=== PATIENT | male | born 1980 | race American Indian/Alaskan Native ===

== ENCOUNTER 2019-03-17 10:30 | Emergency (ER) | payer SELFPAY ==
[2019-03-17 10:42] VITALS: BP 140/99
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
== END 2019-03-17 11:47 | disposition home or self-care (01) ==
LOC: ED 10:30
DX: J95.00 Unspecified tracheostomy complication (principal); I10 Essential (primary) hypertension; Z79.899 Other long term (current) drug therapy